=== PATIENT | male | born 1980 | race African-American/Black ===

== ENCOUNTER → 2017-07-15 | Outpatient (CLI) | payer OTHER ==
[2016-01-25 11:57] VITALS: BP 156/94
--- NOTE | 2017-07-15 15:48 | RAD ---
SHOULDER BILAT 2+V (bilateral AP in internal and external rotation, transscapular Y views) Clinical Indication: LOWER BACK PAIN. JOINT PAIN. Comparison: None. Findings: No acute fracture or malalignment. The joint spaces are maintained. Bony mineralization is normal for the patient's age. No significant soft tissue abnormality. No radiopaque foreign body. IMPRESSION: No acute fracture or malalignment.
--- NOTE | 2017-07-15 16:12 | RAD ---
LUMBAR SPINE 2-3V (AP, lateral, coned down spot views) Clinical Indication: Lower back pain Comparison: None. Findings: There are 5 nonrib-bearing lumbar-type vertebral bodies. The normal lumbar lordosis is maintained. No listhesis. Vertebral body heights and disc spaces are maintained. No significant soft tissue abnormality. IMPRESSION: No acute fracture or malalignment.
--- NOTE | 2017-07-15 16:36 | RAD ---
ANKLE LEFT 3V Clinical Indication: Ankle pain Comparison: None. Findings: Postsurgical changes of calcaneal screw fixation. No evidence of hardware failure. Suggestion of disuse osteopenia. No acute fracture or malalignment. No significant soft tissue abnormality. IMPRESSION: 1. No acute fracture or malalignment. 2. Postsurgical changes of calcaneal screw fixation. No evidence of hardware failure. 3. Suggestion of disuse osteopenia.
== END | disposition home or self-care (01) ==
LOC: RAD 11:07
PROVIDERS: ATTEND Internal Medicine Cardiovascular Disease
DX: M54.5 Low back pain (principal); M25.572 Pain in left ankle and joints of left foot; M25.511 Pain in right shoulder; M25.512 Pain in left shoulder; Z98.890 Other specified postprocedural states
CPT/HCPCS: 72100; 73030; 73610

== ENCOUNTER → 2017-10-23 | Outpatient (CLI) | payer OTHER ==
[2017-10-23 09:49] LABS: CHOLESTEROL 145 mg/dL (0-200); HDLC 38 mg/dL (40-60); LDLC 62 mg/dL (0-100); NON-HDL CHOLESTEROL 107 mg/dL (0-129); TRIGLYCERIDES 226 mg/dL (0-150); VLDLC 45 mg/dL (0-40)
[2017-10-23 09:49] LABS: GLUCOSE 301 mg/dL (70-99)
[2017-10-23 09:51] LABS: CHOLESTEROL/HDL RATIO 3.8
[2017-10-24 00:16] LABS: HEMOGLOBIN A1C 10.5 % (4.8-5.6)
== END | disposition home or self-care (01) ==
LOC: LAB 09:11
DX: M41.83 Other forms of scoliosis, cervicothoracic region (principal); M85.88 Other specified disorders of bone density and structure, other site; I10 Essential (primary) hypertension; E11.9 Type 2 diabetes mellitus without complications
CPT/HCPCS: 36415; 72040; 72072; 80061; 82043; 82306; 82947; 83036; 83700